=== PATIENT | male | born 1985 | race Two or more races ===

== ENCOUNTER 2017-10-01 08:30 | Inpatient (IN) | payer OTHER ==
[2017-09-19 16:53] LABS: BASOPHILS % (AUTO) 1.6 % (0.0-2.0); EOSINOPHILS % (AUTO) 2.8 % (0.0-3.0); HEMATOCRIT 50.1 % (42.0-52.0); HEMOGLOBIN 15.5 G/DL (14.2-18.0); LYMPHOCYTES % (AUTO) 39.2 % (20.0-45.0); MEAN CORPUSCULAR VOLUME 84 FL (80-99); MONOCYTES % (AUTO) 9.6 % (1.0-10.0); NEUTROPHILS % (AUTO) 46.8 % (45.0-75.0); PLATELET COUNT 240 K/UL (150-450); RED BLOOD COUNT 5.98 M/UL (4.70-6.10); WHITE BLOOD COUNT 4.8 K/UL (4.8-10.8)
[2017-09-19 17:07] LABS: ALANINE AMINOTRANSFERASE 153 U/L (12-78); ALKALINE PHOSPHATASE 105 U/L (46-116); ANION GAP 9 mmol/L (5-15); ASPARTATE AMINO TRANSFERASE 68 U/L (15-37); BILIRUBIN,TOTAL 0.6 MG/DL (0.2-1.0); BLOOD UREA NITROGEN 12 mg/dL (7-18); CALCIUM 8.9 MG/DL (8.5-10.1); CARBON DIOXIDE 27 MMOL/L (21-32); CHLORIDE 106 MMOL/L (98-107); CREATININE 1.2 MG/DL (0.55-1.30); PHOSPHORUS 2.7 MG/DL (2.5-4.9); POTASSIUM 3.9 MMOL/L (3.5-5.1); SODIUM 142 MMOL/L (136-145)
[2017-09-19 17:07] LABS: APPEARANCE,URINE CLEAR; BILIRUBIN, URINE NEGATIVE (NEGATIVE); COLOR,URINE YELLOW; GLUCOSE, URINE (UA) NEGATIVE (NEGATIVE); KETONES,URINE NEGATIVE (NEGATIVE); LEUKOCYTE ESTERASE ,URINE NEGATIVE (NEGATIVE); NITRITE,URINE NEGATIVE (NEGATIVE); PH,URINE 5 (4.5-8.0); PROTEIN,URINE NEGATIVE (NEGATIVE); UROBILINOGEN,URINE 1 MG/DL (0.0-1.0)
--- NOTE | 2017-09-20 11:47 | Diagnostic Imaging Report ---
Indication: Cough Technique: XRAY Chest 2v Comparison: None Findings: Heart size and mediastinal contours are within normal limits. There is no focal airspace consolidation, pleural effusion or pneumothorax. No acute osseous abnormality seen Impression: No focal airspace consolidation.
[2017-10-01] VITALS (14 sets, daily range): BP systolic 120–145; BP diastolic 57–87
[~2017-10-01] VITALS: Ht 170.2 cm; Wt 99.8 kg
[~2017-10-01 08:30] MED LIST: AMBIEN10 MG ORAL; Dexamethasone 4mg/ml vial ONE; Ketamine 500mg Inj ONE; LR 1000ml ONE; Lidocaine 1% MPF 10mg/ml 5ml ONE; NORCO 10/3251 EA ORAL; NS Irrig 2000ml IRRIG ONE; Propofol 1,000mg/ 100ml btl IV ONE; Sterile Water Irrig 1000ml IRRIG ONE; Zemuron 50mg/5ml Inj IV ONE; ceFAZolin sod 2 GM in D5W 110 ML IVPB ONE; fentaNYL 100 mcg/2 mL IV ONE
[2017-10-01] MEDS ORDERED: LR 1000ml 1,000 ML IVLG SCH (09:58)
--- NOTE | 2017-10-01 09:59 | Anethesia Preoperative Eval ---
Anesthesia Pre-op PMH/ROS General Date of Evaluation: Oct 01, 2017 Time of Evaluation: 12:21 Anesthesiologist: Radha ASA Score: ASA 2 Mallampati Score Class I : Soft palate, uvula, fauces, pillars visible Class II: Soft palate, uvula, fauces visible Class III: Soft palate, base of uvula visible Class IV: Only hard plate visible Mallampati Classification: Class II Surgeon: Lisette Diagnosis: Back Pain Surgical Procedure: ALIF L5-S1, PSF L5-S1 Anesthesia History: none Family History: no anesthesia problems Allergies: Coded Allergies: No Known Allergies (Unverified , 09/30/17) Medications: see eMAR Past Medical History Pulmonary: Reports: other - Pneumonia Other: obesity - BMI 37 Anesthesia Pre-op Phys. Exam Physician Exam Last Vital Signs Date Time Temp Pulse Resp B/P (MAP) Pulse Ox O2 Delivery O2 Flow Rate FiO2 10/01/17 09:44 99.1 81 18 133/87 98 Room Air Constitutional: NAD Neurologic: CN 2-12 intact Cardiovascular: RRR Respiratory: CTA Gastrointestinal: S/NT/ND Airway Exam Mallampati Score: Class II MO: full ROM: full Teeth: intact Anesthesia Pre-op A/P Risk Assessment & Plan Assessment: ASA 2 Plan: GA, BIS, GlideScope Status Change Before Surgery: No Pre-Antibiotics Dru Grams Ancef IV Given Within 1 Hr of Incision: Yes Time Given: 12:31 Min Garcia MD Oct 01, 2017 09:59
[2017-10-01] MEDS ORDERED: LORazepam Inj 2mg/ml 1ml IV PRN (10:00)
[2017-10-01] MEDS ORDERED: Acetaminophen (Non formulary) 100 ML IV ONE (10:00)
[2017-10-01] MEDS ORDERED: Ketorolac 30mg Inj IV PRN ×2 (10:00)
[2017-10-01] MEDS ORDERED: Labetalol 5mg/ml 20ml vial IV PRN (10:00)
[2017-10-01] MEDS ORDERED: DiphenhydrAMINE 50mg/ml Inj IVP PRN (10:00)
[2017-10-01] MEDS ORDERED: Hydromorphone 0.5mg/0.5ml inj IVP PRN (10:00)
[2017-10-01] MEDS ORDERED: Atropine Inj 1mg/10ml Syr IV PRN (10:00)
[2017-10-01] MEDS ORDERED: Midazolam 2mg/2ml Inj IVP PRN (10:00)
[2017-10-01] MEDS ORDERED: Norco 5mg/325mg tab ORAL PRN ×2 (10:00→14:00)
[2017-10-01] MEDS ORDERED: fentaNYL 100 mcg/2 mL IV PRN (10:00)
[2017-10-01] MEDS ORDERED: oxyCODONE HCL/Acetaminophen 5/325mg ORAL PRN (10:00)
[2017-10-01] MEDS ORDERED: HYDROcodone/Acetamin 7.5/325 tab ORAL PRN ×3 (10:00→14:00)
--- NOTE | 2017-10-01 10:18 | Immediate Post-Op Evaluation ---
Immediate Post-Op Evalulation Immediate Post-Op Evalulation Procedure: ALIF L5-S1, PSF L5-S1 Date of Evaluation: Oct 01, 2017 Time of Evaluation: 16:37 IV Fluids: 1200 LR Blood Products: 0 Estimated Blood Loss: 100 Urinary Output: 350 Blood Pressure Systolic: 121 Blood Pressure Diastolic: 57 Pulse Rate: 104 Respiratory Rate: 16 O2 Sat by Pulse Oximetry: 96 Temperature (Fahrenheit): 97.3 Pain Score (1-10): 3 Nausea: No Vomiting: No Complications 0 Patient Status: awake, reacts, patent, extubated, none Hydration Status: adequate Dru Grams Ancef IV Given Within 1 Hr of Incision: Yes Time Given: 12:31 Min Garcia MD Oct 01, 2017 10:18
[2017-10-01] MEDS ORDERED: Bupivacaine 0.5% Inj 30 ml vial INJ ONE (12:07)
[2017-10-01] MEDS ORDERED: Heparin 5000 units/ml inj ONE (12:07)
[2017-10-01] MEDS ORDERED: Thrombin 5000 units TOPIC ONE ×3 (12:07→16:27)
[2017-10-01] MEDS ORDERED: Lidocaine 1% 10mg/ml/Epi 0.005mg/ml 30ml vial INJ ONE (12:07)
--- NOTE | 2017-10-01 12:07 | Pre-Procedure Note/Attestation ---
Pre-Procedure Note/Attestation Complete Prior to Procedure Procedure Narrative: L5S1 ant post spinal fusion with decompression Indications for Procedure Pre-Operative Diagnosis: L5S1 spondylolisthesis Attestation I attest that I discussed the nature of the procedure; its benefits; risks and complications; and alternatives (and the risks and benefits of such alternatives ), prior to the procedure, with the patient (or the patient's legal financial service representative). I attest that, if there was a reasonable possibility of needing a blood transfusion, the patient (or the patient's legal financial service representative) was given the [facility] standardized written summary, pursuant to the [place] Blood Safety Act ([place] Health and Safety Code # 1645, as amended). I attest that I re-evaluated the patient just prior to the surgery and that there has been no change in the patient's H&P, except as documented below: CORRINE OWUSU Oct 01, 2017 12:07
[2017-10-01] MEDS ORDERED: Thrombin 5000 units spray kit TOPIC ONE ×2 (12:08→14:10)
[2017-10-01] MEDS ORDERED: Gelfoam Absorbable 1gm powder pkt TOPIC ONE ×2 (12:08→14:10)
[2017-10-01] MEDS ORDERED: Bacitracin 50000 Units Vial ONE (12:08)
[2017-10-01] MEDS ORDERED: Ropivacaine 5mg/ml Vial 30ml INJ ONE (12:31)
[2017-10-01] MEDS ORDERED: Naloxone 0.4mg/ml Inj IVP PRN (14:00)
[2017-10-01] MEDS ORDERED: HYDROmorphone 1mg/ml Carpuject SUBQ PRN (14:00)
[2017-10-01] MEDS ORDERED: Milk of Magnesia 30ml Ud ORAL PRN (14:00)
[2017-10-01] MEDS ORDERED: traMADol 50mg tab ORAL PRN (14:00)
--- NOTE | 2017-10-01 14:04 | Brief Operative Note ---
Immediate Post Operative Note Operative Note Pre-op Diagnosis: L5S1 spondylolisthesis Procedure: ant post fusion L5s1, R laminectomy Post-op Diagnosis: same as pre-op Findings: consistent w/pre-op dx studies Surgeon: satya Senior National Account Manager: chong cobb Additional Surgeons: latoya hines vascular Anesthesiologist: Darwin Anesthesia: general Specimen: yes - disc Complications: none Condition: stable Fluids: 1200 Estimated Blood Loss: volume - 100 Drains: none Implant(s) used?: Yes - 4web alif, plate, post dual lamina IS fixation by CORRINE Zavala Oct 01, 2017 14:04
--- NOTE | 2017-10-01 16:32 | Diagnostic Imaging Report ---
Indication: Lower back pain, right side, intraoperative Technique: Intraoperative images Comparison: none Findings: Intraoperative images document surgical tool projected anterior to the L5-S1 disc. Subsequent images document placement of a disc prosthesis at L5-S1, and an interspinous prosthesis posteriorly. Impression: Intraoperative imaging, as described
[2017-10-01] MEDS ORDERED: D5 1/2NS 1,000 ML IV SCH (19:00)
--- NOTE | 2017-10-01 19:00 | Operative Note - Dictated ---
DATE OF OPERATION: 10/01/2017 SURGEON: Eliseo Knox M.D. VASCULAR ACCESS SURGEON: Prasanna Cohen M.D., Vascular. FIRST ASSISTANCE: Hermilo Go PA-C. ANESTHESIA: Min Garcia M.D. ANESTHESIA TYPE: General endotracheal anesthesia. PREOPERATIVE DIAGNOSES: 1. Spondylolisthesis, L5-S1. 2. Mechanical back pain. 3. Right lower extremity radiculopathy. POSTOPERATIVE DIAGNOSES: 1. Spondylolisthesis, L5-S1. 2. Mechanical back pain. 3. Right lower extremity radiculopathy. PROCEDURE: 1. Wide and radical diskectomy, L5-S1. 2. Anterior lumbar interbody fusion using structural titanium cage (4WEB) plus allograft (Signafuse). 3. Anterior instrumentation, L5-S1. 4. Use of fluoroscopy for localization purposes. INDICATIONS: The patient is a pleasant gentleman with mechanical back pain, spondylolisthesis at L5-S1 with radiation down the right leg. Surgical intervention was discussed as conservative care has failed. RISK NOTE: The patient was explained in detail on risks and benefits of surgery to include but not be limited to those of bleeding, infection, damage to nerves or vessels or tendons, anesthetic risk, allergic reaction, aspiration, and possibly . The patient understood and wished to proceed. OPERATIVE PROCEDURE IN DETAIL: The patient was taken to the operative suite after general endotracheal anesthesia was obtained. Brooks catheter was placed. He was positioned supine onto a radiolucent table. The vascular team then proceeded to perform an anterior retroperitoneal approach, which will be dictated separately. Once the retractors were in place and the L5-S1 level was fully exposed, fluoroscope was brought in and the level was carefully identified and verified. At this point, the spine surgical team then proceeded to perform a wide and radical diskectomy using standard technique using a scalpel, pituitaries, curettes, rongeurs, endplate rasps, etc. The dissection was carried out all the way to the posterior annulus. Bullet retractors were put in on alternating sides so as to be able to obtain some distraction at this level. The disk space was cleaned out and the endplate preparation was performed using a curved curette. A trial implant measuring 12 mm was put in and once satisfied with this, the medium 12 mm 4WEB implant was chosen. It was centrally packed with Signafuse and inserted into the disk space. At this point, once satisfied with positioning, which was verified on both AP and lateral projections, an anterior plate was then inserted and the appropriate-sized screw was inserted. At this point, once satisfied with the ALIF procedure, copious irrigation was performed. Final closure will be dictated separately by Dr. Cohen, the vascular surgeon. Sponge and needle counts were correct. [facility] Bertin Knox DR: JUAN JOB#: [id number] CC:
[2017-10-01] MEDS ORDERED: Chloraseptic Spray 20mL Bottle ORAL ONE (19:07)
[2017-10-01] MEDS ORDERED: Zolpidem 5mg tab ORAL PRN (19:15)
[2017-10-01] MEDS ORDERED: Cyclobenzaprine 10mg Tab ORAL PRN (19:15)
[2017-10-01] MEDS ORDERED: Chloraseptic Spray 20mL Bottle ORAL PRN (19:15)
[2017-10-01] MEDS ORDERED: Tamsulosin 0.4mg cap ORAL ONE (20:00)
[2017-10-01] MEDS: Docusate 100mg cap ORAL SCH (20:59)
[2017-10-01] MEDS: ceFAZolin sod 1 GM in D5W 55 ML IV SCH ×2 (21:00→21:20)
[2017-10-01] MEDS: D5 1/2NS 1,000 ML IV SCH (21:05)
--- NOTE | 2017-10-01 21:15 | Operative Note - Dictated ---
DATE OF OPERATION: 10/01/2017 DICTATING PHYSICIAN: Prasanna Cohen M.D. VASCULAR SURGEON: Prasanna Cohen M.D. SPINE SURGEON: Eliseo Knox M.D. PREOPERATIVE DIAGNOSIS: Degenerative disk disease. POSTOPERATIVE DIAGNOSIS: Degenerative disk disease. PROCEDURE PERFORMED: Anterior retroperitoneal exposure of L5-S1 vertebral interspace. INDICATIONS: This is a very pleasant gentleman who is scheduled for anterior fusion L5-S1. He has been counseled on the risks of vascular and spine surgery including possible need for blood transfusion and deep venous thrombosis. DESCRIPTION OF FINDINGS: A low vertical midline incision was used. A left retroperitoneal approach was used. There was no peritoneal or ureteral violation. There was no vascular injury. Exposure of L5 was obtained below the iliac bifurcation with retraction of left common iliac artery and vein superior and laterally. The Omni retractor was used for retraction and fluoroscopy was used to confirm the appropriate level prior to instrumentation. On completion, the peritoneum and ureter were intact. Iliac vessels were intact. Blood loss was less than 50 mL and complications were none. The patient also noted to have palpable femoral and pedal pulses and normal pulse oximetry in the left leg throughout the case. DESCRIPTION OF PROCEDURE: The patient was taken to the operating room. General anesthesia was used. Antibiotics were given. The patient's abdomen was prepped and draped. Appropriate time-out for procedure taken. A low vertical midline incision was made infraumbilically. The anterior fascia was incised longitudinally midline. A plane identified posterior to the left rectus abdominis developed posterolaterally to the patient's left. The retroperitoneal space entered below the arcuate line. The peritoneum and ureter were mobilized towards the patient's right exposing the left common iliac artery and vein. Dissection was carried on undersurface of left common vein and the middle sacral vein were ligated using bipolar electrocautery and divided and this allowed us to the soft tissue off the anterior surface of the L5 and S1. At this time, the Omni retractor was set in place. Fluoroscopy was then used to confirm the appropriate level. Then instrumentation performed at L5-S1 as dictated separately. On completion, the retractor was then gently removed. The peritoneum and ureter were intact. Iliac vessels were intact. Anterior fascia was then closed with #1 PDS in a running fashion. The skin and subcutaneous tissue were closed with 3-0 Vicryl and 4 Monocryl running subcuticular closure technique. ESTIMATED BLOOD LOSS: . COMPLICATIONS: None. Prasanna Cohen M.D. DR: JEFFERSON JOB#: [id number] CC:
--- NOTE | 2017-10-01 21:30 | Operative Note - Dictated ---
DATE OF OPERATION: 10/01/2017 SURGEON: Eliseo Knox M.D. CONSTRUCTION QUALITY CONTROL MANAGER: Hermilo Go PA-C. ANESTHESIA: General endotracheal anesthesia. ANESTHESIOLOGIST: Min Garcia M.D. PREOPERATIVE DIAGNOSES: 1. Diskopathy and spondylolisthesis L5-S1 with mechanical back pain and right lower extremity. 2. Status post prior anterior lumbar interbody fusion. POSTOPERATIVE DIAGNOSES: 1. Discopathy and spondylolisthesis L5-S1 with mechanical back pain and right lower extremity. 2. Status post prior anterior lumbar interbody fusion. PROCEDURE: 1. Posterior spinal fusion with interspinous fixation (staple length dual lamina system). 2. Nonsegmental instrumentation, L5-S1. 3. Use of Signafuse bone graft. 4. Hemilaminectomy and medial facetectomy, right side, L5-S1. 5. Use of fluoroscopy. 6. Use of operating microscope. ESTIMATED BLOOD LOSS: Minimal. COMPLICATIONS: None. INDICATIONS: The patient is a very pleasant gentleman with mechanical back pain with notable diskopathy L5-S1 and minimal instability at L5-S1. Conservative care namely core strengthening, internal stabilization, physical therapy and pain management was tried, however, despite this, he had ongoing symptoms. Surgical instrumentation and fusion L5-S1 was recommended, which the patient elected to proceed. RISK NOTE: The patient was explained in detail the risks and benefits of surgery to include, but not be limited to those of bleeding, infection, damage to nerves, vessels, tendons, anesthetic risk, allergic reaction, aspiration, and possibly was discussed. The patient elected to proceed. INTRAOPERATIVE FINDINGS: Significant facet hypertrophy as well as synovitis right side, L5-S1. It is also of note earlier in the day, the patient has had anterior lumbar interbody fixation, back up posterior fusion was required. OPERATIVE PROCEDURE IN DETAIL: Under benefits of general anesthesia, the patient was turned prone onto a radiolucent Finn frame. The back was prepped and draped in the usual sterile fashion. The fluoroscope was brought in place and two needles were placed at L5 and S1 and radiographically this was confirmed. The skin was then infiltrated with lidocaine and Marcaine with epinephrine. Incision was carried down between L5 and S1 and bilateral subperiosteal dissection was carried out. The facet joints bilaterally were denuded of the joint capsule. The right side was noted to have significant synovitis. At this point, the interspinous ligament between L5 and S1 was removed and an 8 mm interspinous device was chosen and noted to be of appropriate size. At this point, copious irrigation was performed. The left side was packed off. Operating microscope was brought in. High-speed drill was used to remove the lamina of the inferior portion of L5 and medial facetectomy was performed using standard fashion with use of high-speed drill, Kerrison punches as well as removal of the ligamentum flavum in a piecemeal fashion. Extensive neovascularization was noted and meticulous hemostasis was obtained using bipolar. At this point, copious irrigation was performed and meticulous hemostasis was achieved. The neural foramen was probed and noted to be patent. At this point, this area was packed off. The staple length interspinous fixation device was then deployed and placed within the interspinous region and secured and crimped to the appropriate level. It was then secured and all locking nuts were attached. At this point, fluoroscopically it was visualized on both AP and lateral projections and noted to be of ideal configuration. At this point, the spinalink device was removed from the head of conservation and final x-rays were obtained. Please note that prior to placement of the interspinous device, decortication of the lamina on the left side at L5 and S1 as well facetectomy was performed and Signafuse bone graft was then inserted on the left side prior to placement of the interspinous device. The fascia was repaired using #1 Vicryl, subcutaneous closure using 2-0 Vicryl, Dermabond was applied, and sterile dressing was applied. Sponge and needle counts were correct. At the time of this dictation, the patient was awaiting extubation. Eliseo Knox M.D. DR: JUAN JOB#: [id number] CC: CORA
--- NOTE | 2017-10-01 22:15 | Consultation ---
DATE OF CONSULTATION: 10/01/2017 CONSULTING PHYSICIAN: Jeff Gray M.D. REFERRING PHYSICIAN: Eliseo Knox M.D. REASON FOR CONSULTATION: Acute pain consult. HISTORY OF PRESENT ILLNESS: Dear Dr. Eliseo Knox, Thank you kindly for consulting me to evaluate and render an opinion as to how to proceed in the management of the patient's acute postoperative lumbar spine pain after his extensive anterior-approach and posterior-approach lumbar spine fusion surgery with instrumentation. The patient is a 31-year-old gentleman, who lives in [place], injured his lumbar spine in a work-related injury three years ago. Today, he required extensive lumbar spine instrumentation surgery and significant postoperative discomfort. On your request, I saw the patient bedside. We are performing a detailed history and physical examination. I discussed the case with the recovery room nurse, the floor nurse, the pharmacist, and the patient at bedside with his girlfriend. I performed detailed history and physical examination and devised the following analgesic plan. PAST MEDICAL HISTORY: 1. Acute postoperative lumbar spine pain, status post lumbar spine fusion surgery with instrumentation by Dr. Eliseo Knox in 09/2017. 2. Work-related injury. 3. Moderate obesity. PAST SURGICAL HISTORY: None. MEDICATIONS: At home, Ambien and Advil. The patient has tolerated both, Mastic and oxycodone in the past. ALLERGIES: No known drug allergies. SOCIAL HISTORY: The patient is accompanied at the bedside by his girlfriend. They live together with a 2-year-old in [place], [place]. The patient drinks alcohol rarely. He denies tobacco or marijuana usage. FAMILY HISTORY: Maternal diabetes. REVIEW OF SYSTEMS: Per Dr. Varghese. PHYSICAL EXAMINATION: GENERAL: Age 31, height 5 feet 7 inches, weight 101 kilograms and body mass index 35. VITAL SIGNS: Afebrile, pulse of 98, respirations 18, blood pressure 145/78, and oxygen saturation 93% on supplemental oxygen. HEENT: Normocephalic and atraumatic. Nasal cannula oxygen placed. Extraocular muscles intact. Pupils are equal, round, and reactive to light and accommodative. No Vigil's palsy. No Nicki syndrome. No nuchal rigidity. CHEST: Mildly barrel chested. Extensive upper extremity and chest tattoos evident. No wheezes, rales, rhonchi, or accessory muscle use noted. HEART: Regular rate and rhythm. ABDOMEN: Mildly distended. Moderately obese. Tender by incision area with no rebound or guarding. Absent bowel sounds. BACK: Lumbar spine shows significant pain with range of motion or log-rolling. A 5/5 dorsiflexion, 5/5 plantar flexion in bilateral lower extremities. GENITOURINARY: Deferred. Brooks catheter was removed in the recovery room. NEUROLOGIC: Per Dr. Knox. LABORATORY AND DIAGNOSTIC DATA: Diagnostic testing shows 12-lead EKG, ventricular rate 70, normal sinus rhythm. Chest x-ray impression, no acute disease on 09/19/2017. Laboratory studies on 09/19/2017 shows sodium 142, potassium 3.9, chloride 106, bicarbonate 27, BUN 12, creatinine 1.2, and glucose 149. Calcium 8.9. Phosphorus 2.7. Magnesium 1.9. Total bilirubin 0.6, AST 68, ALT 153. Total protein 7.9, albumin 4.0, alkaline phosphatase 105. White count 5, hematocrit 50, and platelets 240. INR 1.0 and PTT 29. Urinalysis is negative. Urine culture, no growth to date. IMPRESSION: 1. Acute postoperative lumbar spine pain, status post lumbar spine fusion surgery with instrumentation by Dr. Eliseo Knox in 09/2017. 2. Work-related injury. 3. Moderate obesity. TREATMENT RECOMMENDATIONS: I have devised the following analgesic plan. The patient has a history of tolerating both hydrocodone and Percocet in the past. He states that muscle relaxants have been used, which do help with sleep. He cannot recall the names of any muscle relaxant in particular. The patient drinks alcohol socially. He denies tobacco or marijuana usage. I have ordered Fioricet one tablet orally every eight hours p.r.n. for any headache complaints. I have ordered Ambien 5 mg at bedtime p.r.n. in case of insomnia symptoms. I have asked nursing to place a Chloraseptic spray bottle at the bedside to help with any sore throat complaints. I have ordered Flexeril 10 mg orally every eight hours for muscle spasms. I have ordered oxycodone 10 mg orally every three hours p.r.n. for moderate pain with the breakthrough dose of Dilaudid 1 mg subcutaneously every three hours p.r.n. for severe breakthrough pain. I will empirically place the patient on Protonix 40 mg nightly for GI ulcer prophylaxis. I have also ordered p.r.n. dose of Mylanta 30 mL q.6 h. in case of any GERD symptom exacerbation. I have ordered Zofran 4 mg intravenously every four hours as a rescue antiemetic. I have also ordered Benadryl 20 mg q.6 h. in case of any itching complaints postoperatively. The patient's Brooks catheter was removed in the recovery room. The patient has yet to void. The patient is a 31-year-old and hopefully will not have any urinary voiding issues. I have asked pharmacy to dose him with one time dose of Flomax 0.4 mg orally x1 now to help reduce the risk for urinary retention issues. If any urinary issues develop, Dr. Varghese will be following as the hospitalist. I have ordered incentive spirometer to encourage good pulmonary toilet. The patient does have sequential compression pneumatic devices in place for DVT prophylaxis. I have left a prescription for Percocet and Flexeril for outpatient usage. I have asked the girlfriend to bring in the patient's pharmacy card from [facility] which hopefully will expedite dispensing of the prescription by the local pharmacy to outpatient pharmacy [facility]. Jeff Gray M.D. DR: JH JOB#: [id number] CC:
[2017-10-01] MEDS: HYDROmorphone 1mg/ml Carpuject SUBQ PRN (23:35)
[2017-10-02] VITALS: BP 115/67
[2017-10-02 04:00] VITALS: BP 105/58
[2017-10-02] MEDS: HYDROmorphone 1mg/ml Carpuject SUBQ PRN ×3 (05:14→19:52)
[2017-10-02] MEDS: D5 1/2NS 1,000 ML IV SCH ×2 (05:15→18:13)
[2017-10-02] MEDS: ceFAZolin sod 1 GM in D5W 55 ML IV SCH (05:17)
[2017-10-02 06:59] LABS: BASOPHILS % (AUTO) 0.2 % (0.0-2.0); EOSINOPHILS % (AUTO) 0.1 % (0.0-3.0); HEMATOCRIT 42.4 % (42.0-52.0); LYMPHOCYTES % (AUTO) 15.4 % (20.0-45.0); MEAN CORPUSCULAR VOLUME 83 FL (80-99); MONOCYTES % (AUTO) 9.8 % (1.0-10.0); NEUTROPHILS % (AUTO) 74.5 % (45.0-75.0); PLATELET COUNT 225 K/UL (150-450); RED BLOOD COUNT 5.09 M/UL (4.70-6.10); WHITE BLOOD COUNT 7.2 K/UL (4.8-10.8)
--- NOTE | 2017-10-02 08:44 | Orthopedic Spine Progress Note ---
Ortho Spine - Progress Note Subjective Symptoms: c/o post-op back pain, improved - as compared to pre-op Objective Vital Signs: Last 24 Hour Vital Signs Date Time Temp Pulse Resp B/P (MAP) Pulse Ox O2 Delivery O2 Flow Rate FiO2 10/02/17 05:38 97 Nasal Cannula 3.0 32 10/02/17 05:37 Nasal Cannula 3.0 32 10/02/17 04:00 97.8 83 18 105/58 96 Nasal Cannula 2.0 10/02/17 00:00 97.6 81 18 115/67 96 Nasal Cannula 2.0 10/01/17 21:00 98.0 92 18 122/76 98 Nasal Cannula 2.0 10/01/17 20:00 98.0 92 18 122/77 98 Nasal Cannula 2.0 10/01/17 18:30 98.0 98 20 128/72 99 Nasal Cannula 3.0 10/01/17 18:00 97.2 98 18 145/78 96 Nasal Cannula 3.0 10/01/17 17:40 99 19 136/79 97 Nasal Cannula 3.0 10/01/17 17:30 100 15 145/77 98 Nasal Cannula 3.0 10/01/17 17:20 97 18 139/75 97 Nasal Cannula 3.0 10/01/17 17:15 99 20 135/78 96 Nasal Cannula 3.0 10/01/17 17:00 101 19 133/76 97 Nasal Cannula 3.0 10/01/17 16:50 98 15 120/65 97 Simple Mask 6.0 10/01/17 16:45 100 16 121/63 96 Simple Mask 6.0 10/01/17 16:30 97 17 126/60 98 Simple Mask 6.0 10/01/17 16:28 104 16 96 10/01/17 16:26 97.3 104 18 121/57 96 Simple Mask 6.0 10/01/17 09:44 99.1 81 18 133/87 98 Room Air I&O: Intake and Output 10/01/17 10/02/17 19:00 07:00 Intake Total 125 ml 625 ml Output Total 1000 ml Balance 125 ml -375 ml Intake IV Total 125 ml 625 ml Output Urine Total 1000 ml # Voids 1 Wound: clean, intact Drains: none Neuro Status: normal Assessment Procedure Performed: ant post fusion L5s1, R laminectomy Plan Plan: PT, pain management, discharge plan Additional Comments: advance diet CORRINE OWUSU Oct 02, 2017 08:44
[2017-10-02] MEDS: Docusate 100mg cap ORAL SCH ×2 (09:07→18:12)
--- NOTE | 2017-10-02 10:57 | 48 Hour Post Anesthesia Eval ---
Post Anesthesia Evaluation Procedure: ALIF L5-S1, PSF L5-S1 Date of Evaluation: Oct 02, 2017 Time of Evaluation: 10:56 Blood Pressure Systolic: 105 0: 58 Pulse Rate: 83 Respiratory Rate: 18 Temperature (Fahrenheit): 97.3 O2 Sat by Pulse Oximetry: 96 Airway: patent Nausea: No Vomiting: No Pain Intensity: 2 Hydration Status: adequate Cardiopulmonary Status: Stable Mental Status/LOC: patient returned to baseline Follow-up Care/Observations: 0 Post-Anesthesia Complications: 0 Follow-up care needed: N/A Min Garcia MD Oct 02, 2017 10:57
[2017-10-02 13:40] VITALS: BP 112/63
[2017-10-02] MEDS: oxyCODONE 5mg IR tab ORAL PRN ×2 (13:45→18:20)
[2017-10-02 17:03] VITALS: BP 121/68
[2017-10-02] MEDS: Sennosides 8.6mg ORAL SCH (18:12)
--- NOTE | 2017-10-02 18:15 | Progress Note ---
DATE: 10/02/2017 ACUTE PAIN MANAGEMENT PHYSICIAN PROGRESS NOTE MEDICATIONS: Medication administration record reviewed. Medications include IV fluids, Colace, Protonix, Narcan, Tylenol, milk of magnesia, Fioricet, Ambien, Benadryl, Chloraseptic, Flexeril, Zofran, Roxicodone, Dilaudid, Mylanta. LABORATORY STUDIES: From 10/02/2017, shows white count normal at 7, hematocrit 42, platelets 225,000. IMPRESSION: I saw the patient at bedside with the nurse, ELIANA Arvizu, and the patient's girlfriend. The patient has been ambulating extremely well with physical therapy. He has walked over 150 feet. After the anterior lumbar procedure yesterday, the patient is already passing positive flatus. He has been advancing his diet without any lasting nausea symptoms. I will therefore decrease the intravenous fluid rate to 50 mL/hour at this time. The patient already is on b.i.d. Colace and I will add scheduled Senokot b.i.d. The patient also has p.r.n. milk of magnesia available. We will continue to monitor the patient's gastrointestinal function as he advances his diet this evening. The patient's pain has been relatively well controlled using the subcutaneous Dilaudid and oral oxycodone. The 10 mg dose of oxycodone has been well tolerated and I left a prescription for Percocet and Flexeril for outpatient usage. I have asked the charge nurse, ELIANA Blackmon, to try to help expedite the local outpatient pharmacy to dispense the medication. The patient did have a pharmacy card from his [employer] to expedite dispensing. With the patient's obesity, I did encourage incentive spirometer usage. The patient will continue ambulating aggressively for deep venous thrombosis prophylaxis. Overall, the patient is progressing extremely well after his extensive lumbar spine instrumentation surgery. We will continue supportive care at this time with target for discharge to home tomorrow if the patient continued to progress well and is able to fill his outpatient prescription. Jeff Gray M.D. DR: Michelle JOB#: [id number] CC:
[2017-10-02 20:18] VITALS: BP 109/50
[2017-10-03] VITALS (7 sets, daily range): BP systolic 89–125; BP diastolic 50–73
[2017-10-03] MEDS ORDERED: Milk of Magnesia 30ml Ud ORAL ONE (07:07)
[2017-10-03] MEDS ORDERED: Milk of Magnesia 30ml Ud ORAL PRN (07:15)
[2017-10-03] MEDS: oxyCODONE 5mg IR tab ORAL PRN ×4 (07:21→22:52)
[2017-10-03] MEDS: Sennosides 8.6mg ORAL SCH ×2 (09:15→18:00)
[2017-10-03] MEDS: Docusate 100mg cap ORAL SCH ×2 (09:15→18:00)
--- NOTE | 2017-10-03 09:36 | Orthopedic Spine Progress Note ---
Ortho Spine - Progress Note Subjective Symptoms: c/o post-op back pain, improved - as compared to pre-op Objective Vital Signs: Last 24 Hour Vital Signs Date Time Temp Pulse Resp B/P (MAP) Pulse Ox O2 Delivery O2 Flow Rate FiO2 10/03/17 08:00 99.1 83 19 103/63 98 10/03/17 04:00 99.0 77 18 116/73 93 10/03/17 00:51 99.2 76 18 113/64 95 10/02/17 20:44 96 Room Air 21 10/02/17 20:44 Room Air 10/02/17 20:18 99.9 74 19 109/50 95 10/02/17 17:03 98.4 84 19 121/68 97 Room Air 10/02/17 13:40 98.3 79 17 112/63 95 Room Air 10/02/17 10:57 83 18 96 I&O: Intake and Output 10/02/17 10/03/17 19:00 07:00 Intake Total 240 ml Output Total 2500 ml Balance -2500 ml 240 ml Intake Oral 240 ml Output Urine Total 2500 ml Wound: clean, dry, intact Drains: none Neuro Status: normal Assessment Procedure Performed: ant post fusion L5s1, R laminectomy Plan Plan: PT, pain management, discharge plan CORRINE OWUSU Oct 03, 2017 09:36
[2017-10-03] MEDS: D5 1/2NS 1,000 ML IV SCH (12:03)
--- NOTE | 2017-10-03 15:15 | Progress Note ---
DATE: 10/03/2017 ACUTE PAIN MANAGEMENT PHYSICIAN PROGRESS NOTE MEDICATIONS: Medication administration record reviewed. Medications include Ambien, Senokot, Chloraseptic spray, Protonix, oxycodone, Zofran, Narcan, milk of magnesia, Dilaudid, Colace, Benadryl, Flexeril, Mylanta, Fioricet, and Tylenol. LABORATORY STUDIES: From yesterday, 10/02/2017, shows white count 7, hematocrit 42, and platelets 225,000. OBJECTIVE: VITAL SIGNS: Within normal limits. Afebrile, pulse 77, respirations 18, blood pressure 115/73, and oxygen saturation 93% on room air. I saw the patient at the bedside with his and the nurse RN, Blaze. Overnight, the patient did have somewhat more pain with his increase in ambulation. However, the patient has been rather stoic requesting pain medications. His last dose of oxycodone was 13 hours ago. His last dose of subcutaneous Dilaudid was 11 hours ago. The patient did receive Flexeril about three hours ago. I instructed the nurse and the patient to be more generous in dosing the pain medications, if he is complaining of discomfort. Certainly, it seems that these pain medications are working adequately when they are dosed at the appropriate intervals. I believe waiting eight hours between dosings will not be enough analgesia at this time after his considerable lumbar spine instrumentation surgery. The was able to obtain the outpatient prescription from the local [facility] outpatient pharmacy. The patient is passing positive flatus and I have started him on b.i.d. Senokot along with the scheduled b.i.d. Colace to help with his bowel function. He does have p.r.n. milk of magnesia ordered, which I will have the nurse dispensed this morning. I will defer discharge planning to the surgeon, Dr. Knox, who I discussed the case with. Jeff Gray M.D. DR: TAMRA JOB#: [id number] CC:
[2017-10-04] VITALS: BP 105/58
[2017-10-04 04:00] VITALS: BP 103/59
[2017-10-04] MEDS: oxyCODONE 5mg IR tab ORAL PRN ×4 (04:18→16:50)
[2017-10-04] MEDS: D5 1/2NS 1,000 ML IV SCH (05:12)
[2017-10-04 07:52] VITALS: BP 119/79
[2017-10-04] MEDS: Docusate 100mg cap ORAL SCH ×2 (08:25→18:00)
[2017-10-04] MEDS: Sennosides 8.6mg ORAL SCH ×2 (08:25→18:00)
[2017-10-04 13:00] VITALS: BP 130/75
[2017-10-04] MEDS ORDERED: CYCLOBENZAPRINE10 MG ORAL (15:20)
[2017-10-04] MEDS ORDERED: OXYCODONE-ACET1 EAC5 ORAL (15:21)
--- NOTE | 2017-10-04 15:30 | Progress Note ---
DATE: 10/04/2017 ACUTE PAIN MANAGEMENT PHYSICIAN PROGRESS NOTE MEDICATIONS: Medication administration record reviewed. Medications include Ambien, Senokot, Chloraseptic, Protonix, oxycodone, Zofran, Narcan, milk of magnesia, Dilaudid, Colace, Benadryl, Flexeril, Mylanta, Fioricet, and Tylenol. LABORATORY STUDIES: From 10/02/2017 shows normal white count of 7, hematocrit 42, and platelets 225,000. OBJECTIVE: VITAL SIGNS: Within normal limits. Afebrile, pulse 72, respirations 19, blood pressure 103/59, and oxygen saturation 92% on room air. I saw the patient at bedside with his . I discussed the case with the nurse RN, Hakeem. Originally, at this time, the patient was likely to discharge to home yesterday, but because the patient lives in [place], with over a six[place]hour drive, it was determined that the patient will continue in the hospital so that a relative could drive in from [place] to help him with the drive home. The patient continues to be doing well clinically. He has been receiving the oxycodone 10 mg with intermittent dose of Flexeril with good analgesic relief. The patient has not required his Dilaudid injection for over 36 hours. The patient tells me he has not yet had a bowel movement. He was given milk of magnesia earlier during the hospital stay without any effect. I directed the nurse RN, Hakeem, to dose the patient with milk of magnesia again this morning. The patient has good social support at the bedside with his , who did bean picker machine operator the prescription for outpatient pain medications for home usage. I would recommend the patient continue using his incentive spirometer to encourage good pulmonary toilet. He has not had a fever since yesterday 4 p.m. when it was 100.1, likely contributed by postoperative atelectasis. I would encourage aggressive ambulation as tolerated along with continued incentive spirometer usage. I will defer discharge planning to the surgeon. Jeff Gray M.D. DR: TAMRA JOB#: [id number] CC:
[2017-10-04] MEDS ORDERED: Zolpidem 5mg tab ORAL ONE ×2 (16:00→19:00)
[2017-10-04 16:01] VITALS: BP 124/75
[2017-10-04] MEDS ORDERED: Tubing IV Secondary IV ONE (20:37)
[2017-10-04] MEDS ORDERED: D5 1/2NS 1000ml IV ONE (20:37)
--- NOTE | 2017-10-07 09:50 | Discharge Summary ---
Discharge Summary Hospital Course Date of Admission Oct 01, 2017 at 08:58 Date of Discharge Oct 04, 2017 at 20:38 Admitting Diagnosis Discopathy and spondylolisthesis L5-S1 with mechanical back pain and right lower extremity. Reason for Hospitalization: elective surgery HPI Enrrique Riggins is a 31 year old male who was admitted on Oct 01, 2017 at 08:58 for L5-S1 Discopathy and spondylolisthesis with mechanical back pain and right lower extremity. Patient was admitted for elective surgery Consultations dr Gray - pain specialist Procedures by dr Knox- 10/01/17 1. Posterior spinal fusion with interspinous fixation (staple length dual lamina system). 2. Nonsegmental instrumentation, L5-S1. 3. Use of Signa-fuse bone graft. 4. Hemilaminectomy and medial facetectomy, right side, L5-S1. 5. Use of fluoroscopy. 6. Use of operating microscope. by dr Cohen 10/01/17 Anterior retroperitoneal exposure of L5-S1 vertebral interspace. Hospital Course s/p surgery course of recovery uneventful pain management pain specialist followed fall precautions, PT eval and treatment, ambulate initially gentle IVF, dc when tolerated diet dressings intact diet started and slowly advanced as tolerated, a/emetic prn neurovascular status check frequently IS while in the bed GI prophylaxis Brooks dc in recovery room, voided w/out difficulties bowel regimen instituted stable for dc: neurovascular intact pain controlled tolerated diet ambulated voided freely dressings clean, intact, dry fup with surgeon as advised FINAL DIAGNOSIS 1. Discopathy and spondylolisthesis L5-S1 with mechanical back pain and right lower extremity. 2. History of prior anterior lumbar interbody fusion. 3. s/p 10/01- Hemilaminectomy and medial facetectomy, right side, L5-S1.; anterior and posterior spinal fusion L5-S1 4. Work related injury Discharge Medications Continued Medications: Cyclobenzaprine Hcl* (Flexeril*) 10 Mg Tablet 10 MG ORAL Q8HR PRN for For Pain, TAB Oxycodone Hcl/Acetaminophen 10-325* (Oxycodone-Acetaminophen 10-325*) 1 Each Tablet 1 TAB ORAL Q4H PRN for For Pain, TAB Zolpidem Tartrate* (Ambien*) 10 Mg Tablet 10 MG ORAL BEDTIME PRN for Insomnia, TAB 0 Refills Discontinued Medications: Hydrocodone/Acetaminophen (Hydrocodon-Acetaminophn 10-325) 1 Each Tablet 1 TAB ORAL Q8H PRN for For Pain, #30 TAB 0 Refills Discharge Condition Upon Discharge: stable Discharge Disposition Patient was discharged home Discharge Diagnoses: Discharge Instructions Discharge Instructions Special Instructions I have been assigned to complete a D/C Summary on this account. I was not involved in the patient management Indira Palmer NP ([place]) Oct 07, 2017 09:50
== END 2017-10-04 20:38 | disposition home or self-care (01) | DRG 455 ==
LOC: SDSOVERFLO 08:58 → 3E 18:30
PROC: 0ST40ZZ Resection of Lumbosacral Disc, Open Approach (ICD-10-PCS; principal; 2017-10-01 12:00)
PROC: 0SG30J1 Fusion of Lumbosacral Joint with Synthetic Substitute, Posterior Approach, Posterior Column, Open Approach (ICD-10-PCS; principal; 2017-10-01 12:00)
PROC: 0SG30A0 Fusion of Lumbosacral Joint with Interbody Fusion Device, Anterior Approach, Anterior Column, Open Approach (ICD-10-PCS; principal; 2017-10-01 12:00)
DX: M51.17 Intervertebral disc disorders with radiculopathy, lumbosacral region (principal); M43.17 Spondylolisthesis, lumbosacral region
CPT/HCPCS: 36415; 71046; 72020; 76001; 80053; 81001; 83735; 84100; 85025; 85610; 85730; 86850; 86900; 86901; 87081; 87086; 94003; 94150; 94760; J2405